=== PATIENT | male | born 1960 | race African-American/Black ===

== ENCOUNTER 2023-11-27 07:14 | Day surgery (SDC) | payer OTHER ==
[2023-11-19 15:04] VITALS: BMI 32.7
[2023-11-27] MEDS: CYCLOPENTOLATE 2% OPHTH SOLN 2 ML BOTTLE ONE (07:45)
[2023-11-27] MEDS: PHENYLEPHRINE 2.5% OPTHALMIC DROP 2ML BOTTLE ONE (07:45)
[2023-11-27] MEDS: TROPICAMIDE 1% OPHTH SOLN 15 ML BOTTLE ONE (07:45)
[2023-11-27] MEDS: CIPROFLOXACIN 0.3% EYE DROPS 5 ML BOTTLE ONE (07:45)
[2023-11-27 07:48] VITALS: PULSE 62; RESP 16; TEMP 97.1
[2023-11-27] MEDS ORDERED: BSS (NA/CA/MG/K) BALANCED SALT SOLUTION OPHTH SOLN 15 ML BOTTLE ONE (08:19)
[2023-11-27] MEDS ORDERED: TETRACAINE 0.5% OPHTH SOLN 2 ML BOTTLE ONE (08:19)
[2023-11-27] MEDS ORDERED: NEO/POLYMYX B SULF/DEXAMETH OPHTHALMIC 5ML BOTTLE ONE (08:19)
[2023-11-27] MEDS ORDERED: CARBACHOL 0.01% INTRA-OCULAR 1.5 ML VIAL ONE (08:19)
[2023-11-27] MEDS ORDERED: LIDOCAINE 1% P/F 10 MG/ML VIAL ONE (08:19)
[2023-11-27] MEDS ORDERED: MIDAZOLAM HCL 2 MG/2 ML SINGLE DOSE VIAL ONE (09:40)
[2023-11-27 12:20] VITALS: BP 123/80
== END 2023-11-27 10:40 | disposition home or self-care (01) ==
LOC: FASU 07:14
PROVIDERS: ATTEND Ophthalmology
PROC: 08RJ3JZ Replacement of Right Lens with Synthetic Substitute, Percutaneous Approach (ICD-10-PCS; principal; 2023-11-27 09:44)
DX: H26.8 Other specified cataract (principal)
CPT/HCPCS: 66984; V2632